=== PATIENT | female | born 1990 | race Caucasian/White ===

== ENCOUNTER 2024-06-18 20:37 | Emergency (ER) | payer MEDICAID ==
[~2024-06-18] VITALS: Ht 147.3 cm; Wt 72.6 kg
[2024-06-18] MEDS ORDERED: AMOX-430 PO (23:02)
[2024-06-18] MEDS ORDERED: IBUP-1957 PO (23:02)
[2024-06-18] MEDS ORDERED: AMOX/CLAVULANATE 875 MG TABLET ONE (23:07)
[2024-06-18] MEDS ORDERED: IBUPROFEN 400 MG TABLET ONE (23:07)
[2024-06-18] MEDS: AMOX/CLAVULANATE 875 MG TABLET PO ONE (23:13)
[2024-06-18] MEDS: IBUPROFEN 400 MG TABLET PO ONE (23:13)
[2024-06-18 23:15] VITALS: BP 118/71; TEMP 98; O2SAT 98
== END 2024-06-18 23:16 | disposition home or self-care (01) ==
LOC: ER 22:20
DX: K04.7 Periapical abscess without sinus (principal)